=== PATIENT | female | born 1995 | race African-American/Black ===

== ENCOUNTER 2019-08-04 00:13 | Emergency (ER) | payer BC ==
[~2019-08-04] VITALS: Ht 162.6 cm; Wt 91.2 kg
--- NOTE | 2019-08-04 00:19 | ED.ADGEN ---
Adult General Chief Complaint Chief Complaint ".. I am worried.. .. I got Strept.. and get it about 3 x a year....".It hurts to swallow... and I got fever and chills... juan ache all over .. 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 Patient is from [place]. No recent travel. Patient normally healthy. [facility] this has not received a flu vaccination this season. No specific ill contacts. Give hx. of frequent strept. throat infections. No history immunosuppression. Patient is unsure if she's ever had mononucleosis. Review of Systems Review of Systems Constitutional: Subjective complaints of fever Eyes: Denies change in visual acuity, redness, or eye pain [] HENT: Denies nasal congestion. Complaints of sore throat [] Respiratory: Denies cough or shortness of breath [] Cardiovascular: No additional information not addressed in HPI [] GI: Denies abdominal pain, nausea, vomiting, bloody stools or diarrhea [] : Denies dysuria or hematuria [] Musculoskeletal: Denies back pain or joint pain . Has []complaints of arthralgia and myalgia Integument: Denies rash or skin lesions [] Neurologic: Denies headache, focal weakness or sensory changes [] Endocrine: Denies polyuria or polydipsia [] All other systems were reviewed and found to be within normal limits, except as documented in this note. Family History Family History Noncontributory Current Medications Current Medications Current Medications Medications (Trade) Dose Ordered Sig/Adiel Start Time Stop Time Status Last Admin Dose Admin Hydrocodone Bitartrate/ Ibuprofen (Vicoprofen 7.5-200) 1 tab 1X ONCE 08/04/19 02:00 08/04/19 02:01 DC 08/04/19 02:17 1 TAB Prednisone (Prednisone) 50 mg 1X ONCE 08/04/19 01:00 08/04/19 01:01 DC 08/04/19 01:13 50 MG Allergies Allergies Allergies Coded Allergies Type Severity Reaction Last Updated Verified No Known Drug Allergies 08/04/19 No Physical Exam Physical Exam Constitutional: Well developed, well nourished, no acute distress, non-toxic appearance. [] HENT: Normocephalic, atraumatic, bilateral external ears normal, oropharynx moist, injected pharynx, slightly enlarge tonsillar pillars, no oral exudates, nose normal. [] Eyes: PERRLA, EOMI, conjunctiva normal, no discharge. [] Neck: Normal range of motion, no tenderness, supple, no stridor. No adenopathy] Cardiovascular:Heart rate regular rhythm, no murmur [] Lungs & Thorax: Bilateral breath sounds equal at apex on auscultation [] Abdomen: Bowel sounds normal, soft, no tenderness, no masses, no pulsatile masses. [] Skin: Warm, dry, no erythema, no rash. [] Back: No tenderness, no CVA tenderness. [] Extremities: No tenderness, no cyanosis, no clubbing, ROM intact, no edema. [] Neurologic: Alert and oriented X 3, normal motor function, normal sensory function, no focal deficits noted. [] Psychologic: Affect anxious, judgement normal, mood normal. [] Current Patient Data Vital Signs Vital Signs Date Time Temp Pulse Resp B/P (MAP) Pulse Ox O2 Delivery O2 Flow Rate FiO2 08/04/19 00:23 98.6 89 18 99 Room Air Lab Results Laboratory Tests Test 08/04/19 00:30 Influenza Type A (Rapid) Negative (NEGATIVE) Influenza Type B (Rapid) Negative (NEGATIVE) Group A Streptococcus Rapid Negative (NEGATIVE) EKG EKG [] Radiology/Procedures Radiology/Procedures [] Course & Med Decision Making Course & Med Decision Making Pertinent Labs and Imaging studies reviewed. (See chart for details) patient to gargle with Listerine 4 times a day. Take Tylenol and ibuprofen for pain. Benadryl 50 mg up 4 times a day may be helpful. Follow-up primary care. Return of any concerns. [] Final Impression Final Impression 1. Viral pharyngitis[] 2. Viral syndrome Dragon Disclaimer Dragon Disclaimer This electronic medical record was generated, in whole or in part, using a voice recognition dictation system. Dragon Disclaimer This chart was dictated in whole or in part using Voice Recognition software in a busy, high-work load, and often noisy Emergency Department environment. It may contain unintended and wholly unrecognized errors or omissions. CATRACHITA FRANKS MD Aug 04, 2019 00:19
[2019-08-04] MEDS ORDERED: predniSONE 10 MG TABLET PO ONE (01:00)
[2019-08-04 01:31] LABS: INFLUENZA A PATIENT NEGATIVE (NEGATIVE); INFLUENZA B PATIENT NEGATIVE (NEGATIVE)
[2019-08-04] MEDS ORDERED: HYDROcodon/IBUPROFEN 7.5/200MG 1 TAB TABLET PO ONE (02:00)
[2019-08-05] MEDS ORDERED: AMOX500C PO (15:50)
== END 2019-08-04 02:23 | disposition home or self-care (01) ==
LOC: ER 00:13
DX: B34.9 Viral infection, unspecified (principal); J02.8 Acute pharyngitis due to other specified organisms
CPT/HCPCS: 87070; 87804; 87880; 99284; J7512

== ENCOUNTER 2019-08-05 15:16 | Emergency (ER) | payer BC ==
[~2019-08-05] VITALS: Ht 162.6 cm; Wt 92.5 kg
--- NOTE | 2019-08-05 15:49 | ED.ADGEN ---
Past History Past Medical History: No Pertinent History Past Surgical History: Other Additional Past Surgical Histo: WISDOM TEETH Alcohol Use: None Drug Use: None Adult General Chief Complaint Chief Complaint Sore throat HPI HPI Patient is a 23-year-old -[place] female who presents with sore throat, dizziness congestion rhinorrhea the past 4 days. Patient was evaluated emergency department 2 days, had negative strep test. States symptoms improved gradually worsening. Mild hoarseness, no dysphonia drooling or stridor. No fever chills or sweats. No other acute symptoms or complaints.[] Review of Systems Review of Systems Review symptoms as per history of present illness. All other review symptoms are negative. All other systems were reviewed and found to be within normal limits, except as documented in this note. Allergies Allergies Allergies Coded Allergies Type Severity Reaction Last Updated Verified No Known Drug Allergies 08/04/19 No Physical Exam Physical Exam Constitutional: Well developed, well nourished, no acute distress, non-toxic appearance. [] HENT: Normocephalic, atraumatic, bilateral external ears normal, oropharynx radha st, white tonsillar exudate, no peritonsillar mass, nose normal. [] Eyes: PERRLA, EOMI, conjunctiva normal, no discharge. [] Neck: Normal range of motion, no tenderness, supple, anterior cervical lymphadenopathy. [] Cardiovascular:Heart rate regular rhythm, no murmur [] Lungs & Thorax: Bilateral breath sounds clear to auscultation [] Neurologic: Alert and oriented X 3, normal motor function, normal sensory function, no focal deficits noted. [] Psychologic: Affect normal, judgement normal, mood normal. [] Current Patient Data Vital Signs Vital Signs Date Time Temp Pulse Resp B/P (MAP) Pulse Ox O2 Delivery O2 Flow Rate FiO2 08/05/19 15:20 99.0 91 18 100 Room Air EKG EKG [] Radiology/Procedures Radiology/Procedures [] Course & Med Decision Making Course & Med Decision Making Pertinent Labs and Imaging studies reviewed. (See chart for details) [Exam consistent with strep pharyngitis. Will place on antibiotics with instructions off with PCP if further] concerns Final Impression Final Impression [#1 pharyngitis] Dragon Disclaimer Dragon Disclaimer This electronic medical record was generated, in whole or in part, using a voice recognition dictation system. MAME MARIN DO Aug 05, 2019 15:49
[2019-08-05] MEDS ORDERED: AMOX500C PO (15:50)
[2019-08-05 15:57] VITALS: BP 126/83
== END 2019-08-05 15:58 | disposition home or self-care (01) ==
LOC: ER 15:16
DX: J02.9 Acute pharyngitis, unspecified (principal)
CPT/HCPCS: 99283

== ENCOUNTER 2019-08-06 19:32 | Emergency (ER) | payer BC ==
[~2019-08-06] VITALS: Ht 162.6 cm; Wt 92.5 kg
[~2019-08-06 19:32] MED LIST: AMOX500C PO
--- NOTE | 2019-08-06 19:42 | ED.ADGEN ---
Past History Past Medical History: No Pertinent History, Asthma, Hyperthyroid, Renal Disease Past Surgical History: Other Additional Past Surgical Histo: WISDOM TEETH Alcohol Use: None Drug Use: None Adult General Chief Complaint Chief Complaint ".. Throat still hurts.... 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 This is pt. 3 rd visit to ED. The patient from [place], But no recent travel or specific ill contacts. Previous strep test was negative. Was started on amoxicillin 500-3 times a day by Dr. Torre yesterday. Patient states it hurts too much to swallow pills and states she is not better. No history immunosuppression. Patient's pharynx essentially has not changed from previous exam does have pus pockets and erythema. Patient is unsure if she's never had mono. Patient states she gets strep infections approximately 3 times a year. Review of Systems Review of Systems Constitutional: Subjective history of fever or chills [] Eyes: Denies change in visual acuity, redness, or eye pain [] HENT: History of nasal congestion and sore throat [] Respiratory: Hx of non-productive dry cough . Denies shortness of breath [] Cardiovascular: No additional information not addressed in HPI [] GI: Denies abdominal pain, nausea, vomiting, bloody stools or diarrhea [] : Denies dysuria or hematuria [] Musculoskeletal: Complaints of generalized myalgia, arthralgia and malaise. Integument: Denies rash or skin lesions [] Neurologic: Denies headache, focal weakness or sensory changes [] Endocrine: Denies polyuria or polydipsia [] All other systems were reviewed and found to be within normal limits, except as documented in this note. Family History Family History Noncontributory Current Medications Current Medications Current Medications Medications (Trade) Dose Ordered Sig/Adiel Start Time Stop Time Status Last Admin Dose Admin Ceftriaxone Sodium (Rocephin Im) 1 gm 1X ONCE 08/06/19 20:00 08/06/19 20:01 DC 08/06/19 20:16 1 GM Diphenhydramine HCl (Benadryl) 50 mg 1X ONCE 08/06/19 20:00 08/06/19 20:01 DC 08/06/19 20:14 50 MG Hydrocodone Bitartrate/ Ibuprofen (Vicoprofen 7.5-200) 2 tab 1X ONCE 08/06/19 20:00 08/06/19 20:01 DC 08/06/19 20:13 2 TAB Iohexol (Omnipaque 300 Mg/ml) 75 ml 1X ONCE 08/06/19 20:30 08/06/19 20:50 DC 08/06/19 21:25 75 ML Ketorolac Tromethamine (Toradol 30mg Vial) 30 mg 1X ONCE 08/06/19 21:15 08/06/19 21:16 DC 08/06/19 21:17 30 MG Lactated Ringer's 1,000 ml @ 1,000 mls/hr Q1H 08/06/19 20:18 08/06/19 21:17 DC 08/06/19 20:18 1,000 MLS/HR Prednisone (Prednisone) 50 mg 1X ONCE 08/06/19 20:00 08/06/19 20:01 DC 08/06/19 20:13 50 MG Allergies Allergies Allergies Coded Allergies Type Severity Reaction Last Updated Verified No Known Drug Allergies 08/04/19 No Physical Exam Physical Exam Constitutional: Well developed, well nourished, moderate acute distress, non- toxic appearance. [] HENT: Normocephalic, atraumatic, bilateral external ears normal, oropharynx moist, ejected pharynx with some pus pockets of tonsillar pillars. No oral exudates, nose swollen turbinates and clear rhinorrhea Eyes: PERRLA, EOMI, conjunctiva normal, no discharge. [] Neck: Normal range of motion, no tenderness, supple, no stridor. [] Cardiovascular:Heart rate regular rhythm, no murmur [] Lungs & Thorax: Bilateral breath sounds clear to auscultation [] Abdomen: Bowel sounds normal, soft, no tenderness, no masses, no pulsatile masses. [] Skin: Warm, dry, no erythema, no rash. [] Back: No tenderness, no CVA tenderness. [] Extremities: No tenderness, no cyanosis, no clubbing, ROM intact, no edema. [] Neurologic: Alert and oriented X 3, normal motor function, normal sensory function, no focal deficits noted. [] Psychologic: Affect anxious, judgement normal, mood normal. [] Current Patient Data Vital Signs Vital Signs Date Time Temp Pulse Resp B/P (MAP) Pulse Ox O2 Delivery O2 Flow Rate FiO2 08/06/19 22:35 98.8 84 16 147/61 (89) 96 Room Air Lab Results Laboratory Tests Test 08/06/19 20:20 08/06/19 20:30 08/06/19 20:46 Urine Collection Type Unknown Urine Color Yellow Urine Clarity Hazy Urine pH 5.5 Urine Specific [place] 1.025 Urine Protein 100 mg/dl (NEG-TRACE) Urine Glucose (UA) Neg mg/dL (NEG) Urine Ketones (Stick) Trace mg/dL (NEG) Urine Blood Large (NEG) Urine Nitrite Neg (NEG) Urine Bilirubin Neg (NEG) Urine Urobilinogen Dipstick 0.2 mg/dL (0.2 mg/dL) Urine Leukocyte Esterase Trace (NEG) Urine RBC 3-5 /HPF (0-2) Urine WBC 11-20 /HPF (0-4) Urine Squamous Epithelial Cells Mod /LPF Urine Bacteria Few /HPF (0-FEW) Urine Cellular Casts Few /HPF Urine Granular Casts Few /HPF Urine Waxy Casts Few /HPF Urine Mucus Mod /LPF Urine Opiates Screen Neg (NEG) Urine Methadone Screen Neg (NEG) Urine Barbiturates Neg (NEG) Urine Phencyclidine Screen Neg (NEG) Urine Amphetamine/Methamphetamine Neg (NEG) Urine Benzodiazepines Screen Neg (NEG) Urine Cocaine Screen Neg (NEG) Urine Cannabinoids Screen Pos (NEG) Urine Ethyl Alcohol Neg (NEG) POC Urine HCG, Qualitative hcg negative (Negative) White Blood Count 16.8 x10^3/uL (4.0-11.0) H Red Blood Count 4.63 x10^6/uL (3.50-5.40) Hemoglobin 13.1 g/dL (12.0-15.5) Hematocrit 40.3 % (36.0-47.0) Mean Corpuscular Volume 87 fL (79-100) Mean Corpuscular Hemoglobin 28 pg (25-35) Mean Corpuscular Hemoglobin Concent 33 g/dL (31-37) Red Cell Distribution Width 14.9 % (11.5-14.5) H Platelet Count 347 x10^3/uL (140-400) Neutrophils (%) (Auto) 74 % (31-73) H Lymphocytes (%) (Auto) 12 % (24-48) L Monocytes (%) (Auto) 13 % (0-9) H Eosinophils (%) (Auto) 0 % (0-3) Basophils (%) (Auto) 0 % (0-3) Neutrophils # (Auto) 12.4 x10^3uL (1.8-7.7) H Lymphocytes # (Auto) 2.0 x10^3/uL (1.0-4.8) Monocytes # (Auto) 2.2 x10^3/uL (0.0-1.1) H Eosinophils # (Auto) 0.0 x10^3/uL (0.0-0.7) Basophils # (Auto) 0.1 x10^3/uL (0.0-0.2) Segmented Neutrophils % 71 % (35-66) H Band Neutrophils % 7 % (0-9) Lymphocytes % 14 % (24-48) L Monocytes % 7 % (0-10) Eosinophils % 1 % (0-5) Platelet Estimate Adequate (ADEQUATE) Prothrombin Time 11.5 SEC (9.4-11.4) H Prothrombin Time INR 1.1 (0.9-1.1) Activated Partial Thromboplast Time 31 SEC (23-33) Sodium Level 141 mmol/L (136-145) Potassium Level 3.5 mmol/L (3.5-5.1) Chloride Level 106 mmol/L (98-107) Carbon Dioxide Level 25 mmol/L (21-32) Anion Gap 10 (6-14) Blood Urea Nitrogen 6 mg/dL (7-20) L Creatinine 1.1 mg/dL (0.6-1.0) H Estimated GFR (Cockcroft-Gault) 75.9 Glucose Level 103 mg/dL (70-99) H Calcium Level 9.2 mg/dL (8.5-10.1) EKG EKG [] Radiology/Procedures Radiology/Procedures [][address] [address] IMAGING REPORT Signed PATIENT: HERNANDEZ ACCOUNT: [id number] : 1995 LOCATION: ER AGE: 23 SEX: F EXAM STATUS: REG ER ORD. PHYSICIAN: CATRACHITA FRANKS MD REASON: pain- eval retropharyngeal abscess, cough, fever PROCEDURE: CT SOFT TISSUE NECK W/CONTRAST Exam: CT soft tissue neck with contrast INDICATION: Pain TECHNIQUE: Sequential axial images through the neck obtained following the administration of 75 mL of Omni 300 IV contrast. Sagittal and coronal reformatted images were reconstructed from the axial data and reviewed. Comparisons: None FINDINGS: Visualized intracranial structures are unremarkable. Psoas portions of paranasal sinuses and mastoid air cells are well-pneumatized. There is enlargement of the adenoid and palatine tonsils bilaterally, greater on the left. No focal fluid collection is identified. Otherwise, the airways and pharynx are patent. Thyroid and salivary glands are within normal limits. Several prominent mildly enlarged upper cervical lymph nodes are noted bilaterally. Visualized lung apices are clear. No suspicious osseous lesions or acute fractures. IMPRESSION: Enlargement of the palatine and adenoid tonsils bilaterally, may be related to tonsillitis. No focal fluid collection or evidence for retropharyngeal hematoma. Exposure: One or more of the following in the visualized dose reduction techniques were utilized for this examination: 1. Automated exposure control 2. Adjustment of the MA and/or KV according to patient size 3. Use of iterative of reconstructive technique Electronically signed by: Radha Justin MD (08/06/2019 9:47 PM) [facility] [place] DICTATED AND SIGNED BY: RADHA JUSTIN MD DATE: 08/06/192146 CC: CATRACHTIA FRANKS MD; PCP,NO ~ Course & Med Decision Making Course & Med Decision Making Pertinent Labs and Imaging studies reviewed. (See chart for details) Patient gargle with Listerine 3 times a day. Patient use liquid Benadryl and lipid ibuprofen for topical pain relief. Patient take her amoxicillin 500 mg 3 times a day. Patient return if no improvement. Patient follow-up primary care. Patient push fluids. Take Tylenol and ibuprofen for discomfort. Complete her course of antibiotics. Follow-up primary care. No return contact sports until released by primary care. [] Final Impression Final Impression 1. Pharyngitis[] 2. Viral Syndrome Elevated mono and decreased Lymph. 3. + Drug Screen for Marijuana Dragon Disclaimer Dragon Disclaimer This electronic medical record was generated, in whole or in part, using a voice recognition dictation system. Dragon Disclaimer This chart was dictated in whole or in part using Voice Recognition software in a busy, high-work load, and often noisy Emergency Department environment. It may contain unintended and wholly unrecognized errors or omissions. Dragon Disclaimer This chart was dictated in whole or in part using Voice Recognition software in a busy, high-work load, and often noisy Emergency Department environment. It may contain unintended and wholly unrecognized errors or omissions. Dragon Disclaimer This chart was dictated in whole or in part using Voice Recognition software in a busy, high-work load, and often noisy Emergency Department environment. It may contain unintended and wholly unrecognized errors or omissions. CATRACHITA FRANKS MD Aug 06, 2019 19:42
[2019-08-06] MEDS ORDERED: HYDROcodon/IBUPROFEN 7.5/200MG 1 TAB TABLET PO ONE (20:00)
[2019-08-06] MEDS ORDERED: predniSONE 10 MG TABLET PO ONE (20:00)
[2019-08-06] MEDS ORDERED: cefTRIAXone IM 1 GM VIAL IM ONE (20:00)
[2019-08-06] MEDS ORDERED: diphenhydrAMINE HCL 25 MG CAPSULE PO ONE (20:00)
[2019-08-06] MEDS ORDERED: IV RINGERS SOLUTION,LACTATED 1,000 ML IV SCH (20:18)
[2019-08-06] MEDS ORDERED: IOHEXOL 300 MG/ML 75 ML VIAL. IV ONE (20:30)
[2019-08-06 21:10] LABS: BASO # 0.1 x10^3/uL (0.0-0.2); BASO % 0 % (0-3); EOS % 0 % (0-3); HEMATOCRIT 40.3 % (36.0-47.0); HEMOGLOBIN 13.1 g/dL (12.0-15.5); LYMPH % 12 % (24-48); MEAN CORPUSCULAR HEMOGLOBIN 28 pg (25-35); MEAN CORPUSCULAR HGB CONC 33 g/dL (31-37); MEAN CORPUSCULAR VOLUME 87 fL (79-100); MONO # 2.2 x10^3/uL (0.0-1.1); MONO % 13 % (0-9); NEUT # 12.4 x10^3uL (1.8-7.7); NEUT % 74 % (31-73); PLATELET COUNT 347 x10^3/uL (140-400); RED BLOOD COUNT 4.63 x10^6/uL (3.50-5.40); RED CELL DISTRIBUTION WIDTH 14.9 % (11.5-14.5); WHITE BLOOD COUNT 16.8 x10^3/uL (4.0-11.0)
[2019-08-06 21:11] LABS: CALCIUM 9.2 mg/dL (8.5-10.1); CREATININE 1.1 mg/dL (0.6-1.0); GFR 75.9; POTASSIUM 3.5 mmol/L (3.5-5.1)
[2019-08-06] MEDS ORDERED: KETOROLAC 30 MG/ML VIAL. IVP ONE (21:15)
[2019-08-06 21:25] LABS: CLARITY,URINE HAZY; COLOR,URINE YELLOW; GLUCOSE,URINE NEG (NEG)
[2019-08-06 21:26] LABS: BILIRUBIN,URINE NEG (NEG); NITRITE,URINE NEG (NEG); UROBILINOGEN,URINE 0.2 mg/dL (0.2 mg/dL)
[2019-08-06 21:27] LABS: BACTERIA,URINE FEW /HPF (0-FEW); GRANULAR CASTS,URINE FEW /HPF; SQUAMOUS EPITHELIAL CELL,UR MOD /LPF
[2019-08-06 21:28] LABS: WAXY CASTS,URINE FEW /HPF
[2019-08-06 21:38] LABS: % BANDS 7 % (0-9); % EOS 1 % (0-5); % LYMPHS 14 % (24-48); % MONOS 7 % (0-10); % SEGS 71 % (35-66); PLT ESTIMATE ADEQUATE (ADEQUATE)
[2019-08-06 21:42] LABS: BARBITURATES NEG (NEG); BENZODIAZEPINES NEG (NEG); CANNABINOIDS POS (NEG); COCAINE NEG (NEG); METHADONE NEG (NEG); OPIATES NEG (NEG); PHENCYCLIDINE NEG (NEG)
[2019-08-06 21:44] LABS: AMPHETAMINE/METHAMPHETAMINE NEG (NEG)
--- NOTE | 2019-08-06 21:50 | RAD ---
Exam: CT soft tissue neck with contrast INDICATION: Pain TECHNIQUE: Sequential axial images through the neck obtained following the administration of 75 mL of Omni 300 IV contrast. Sagittal and coronal reformatted images were reconstructed from the axial data and reviewed. Comparisons: None FINDINGS: Visualized intracranial structures are unremarkable. Psoas portions of paranasal sinuses and mastoid air cells are well-pneumatized. There is enlargement of the adenoid and palatine tonsils bilaterally, greater on the left. No focal fluid collection is identified. Otherwise, the airways and pharynx are patent. Thyroid and salivary glands are within normal limits. Several prominent mildly enlarged upper cervical lymph nodes are noted bilaterally. Visualized lung apices are clear. No suspicious osseous lesions or acute fractures. IMPRESSION: Enlargement of the palatine and adenoid tonsils bilaterally, may be related to tonsillitis. No focal fluid collection or evidence for retropharyngeal hematoma. Exposure: One or more of the following in the visualized dose reduction techniques were utilized for this examination: 1. Automated exposure control 2. Adjustment of the MA and/or KV according to patient size 3. Use of iterative of reconstructive technique Electronically signed by: Radha San MD (08/06/2019 9:47 PM) [facility] [place]
[2019-08-06 22:35] VITALS: BP 147/61
== END 2019-08-06 22:35 | disposition home or self-care (01) ==
LOC: ER 19:32
DX: B34.9 Viral infection, unspecified (principal); D72.821 Monocytosis (symptomatic); D72.810 Lymphocytopenia; J02.9 Acute pharyngitis, unspecified; J45.909 Unspecified asthma, uncomplicated; E03.9 Hypothyroidism, unspecified; F12.90 Cannabis use, unspecified, uncomplicated
CPT/HCPCS: 36415; 70491; 80048; 80307; 81001; 81025; 85007; 85025; 85610; 85730; 87086; 96372; 96374; 99285; J0696; J1885; J7120; J7512; Q0163; Q9967

== ENCOUNTER → 2020-06-08 | Outpatient (CLI) | payer BC | END | disposition home or self-care (01) | LOC: LAB 12:33 | PROVIDERS: ATTEND Physician Assistant | DX: R79.89 Other specified abnormal findings of blood chemistry (principal) | CPT/HCPCS: 36415; 84484 ==

== ENCOUNTER → 2021-12-07 | Outpatient (CLI) | payer BC ==
--- NOTE | 2021-12-07 11:22 | RAD ---
PA chest x-ray and 3 views of the left lateral ribs for anterior left rib pain after wrestling injury . FINDINGS: Lungs are clear. Cardiomediastinum is grossly unremarkable. No fracture or acute osseous ab normalities identified. No pneumothorax or pleural effusion. IMPRESSION: 1. Normal chest x-ray. 2. No radiographic evidence of left rib fracture. Electronically signed by: Boris Amaral MD (12/07/2021 11:20 AM) [id number]
== END ==
LOC: RAD 10:03
PROVIDERS: ATTEND Nurse Practitioner Family
DX: R07.81 Pleurodynia (principal)
CPT/HCPCS: 71101